=== PATIENT | female | born 1995 | race Caucasian/White ===

== ENCOUNTER 2018-10-31 09:56 | Outpatient (CLI) | payer OTHER ==
[~2018-10-31] VITALS: Ht 160 cm; Wt 61.0 kg
[2018-10-31] MEDS ORDERED: PREN-93 PO (10:08)
[2018-10-31 10:09] VITALS: BP 116/61; PULSE 95; RESP 18; Ht 160 cm; Wt 61.0 kg
--- NOTE | 2018-10-31 12:01 | TRIAGE ---
OB Triage Datetime Report Generated by CPN: 10/31/2018 12:01 Datetime: 10/31/2018 10:07 EGA: 25.6 Datetime: 10/31/2018 10:02 Assessment Type: Triage Maternal Assessment Level of Consciousness: Keenly Alert, Responsive DTR's/Clonus: DTRs 2+; No Clonus Headache: Denies Blurred Vision: No Respiratory Effort: Unlabored; Regular Rhythm; Equal Expansion Breath Sounds, Left: Clear and Equal Breath Sounds, Right: Clear and Equal Nausea/Vomiting: Denies RUQ Epigastric Pain: Denies Lower Extremities Edema: None Degree: None Upper Extremities Edema: None Degree: None Facial Edema: None Fall Risk Assessment History of Falling: (0) No Secondary Diagnosis: (0) No Ambulatory Aid: (0) Bedrest/Nurse Assist IV Therapy: (0) No Gait: (0) Normal/Bedrest/Immobile Mental Status: (0) Oriented to Own Ability Fall Score: 0 Fall Risk Score Definition: No Risk: No action required Datetime: 10/31/2018 10:01 EGA: 25.6 Datetime: 10/31/2018 10:00 Time of Arrival: 10/31/2018 09:44 Arrived By: Ambulatory Arrived From: Home Chief Complaint: PT. HERE C/O DFM AND LOWER ABDOMINAL PRESSURE Movement: Decreased Contractions: Irregular Rupture of Membranes: Denies Vaginal Bleeding: None Vaginal Discharge: Present Recent Sexual Intercouse: Denies Abdominal Trauma: Not Applicable Patient Complaints: Contractions; Cramping; Back Pain Time Provider Notified: 10/31/2018 11:15 Provider Notified: HADADIAN Datetime: 10/31/2018 09:58 Labor Evaluation Monitor Mode: External Heart Rate Monitor Mode: External US
--- NOTE | 2018-10-31 13:27 | PN ---
Triage Information Date/Time Reason for visit: DFM Weeks of Gestation 25 weeks and 6 days /Para -0-0-1 Diabetes: none Hypertention: none Objective Vital Signs Date Temp Pulse Resp B/P (MAP) Pulse Ox O2 O2 Flow FiO2 Time Delivery Rate 10/31/18 98.6 95 18 116/61 Room Air 10:09 (79) Heart Rate: 140's Contractions: None Results/Medications Results 24 hrs Laboratory Tests Test 10/31/18 10:00 Urine Color YELLOW Urine Clarity SLIGHTLY CLOUDY A Urine pH 7.0 Urine Specific [place] 1.013 Urine Ketones NEGATIVE Urine Nitrite NEGATIVE Urine Bilirubin NEGATIVE Urine Urobilinogen NEGATIVE Urine Leukocyte Esterase 1+ H Urine Microscopic RBC 1 Urine Microscopic WBC 4 Urine Squamous Epithelial Cells FEW Urine Bacteria FEW A Urine Hemoglobin NEGATIVE Urine Glucose NEGATIVE Urine Total Protein NEGATIVE Disposition: Discharge Assessment/Plan 23 years old -0-1-0 with single intrauterine at 25 weeks and 6 days complaining of decreased movement and abdominal cramp. She denies nausea, vomiting, shortness of breath, chest pain, headache, visual changes, vaginal bleeding or LOF. -FHR: No sign of metabolic acidosis- Category I -Contractions: None -Ultrasound performed: Normal CHELSI, BPP 8 out of 8, normal cervical length -Symptoms and sign of labor, preeclampsia, kick count discussed with patient, she voiced understanding. All of her questions answered. -Patient was discharged home in stable condition with the appropriate discharge instructions provided. I would like patient to have close follow-up with her primary physician or outpatient clinic in 1-2 days or return to triage for worsening symptoms or any other urgent concerns. REINIER MCDONOUGH Oct 31, 2018 13:27
== END 2018-10-31 12:10 | disposition home or self-care (01) ==
LOC: OBT 09:56 → L-D 09:56 → OBT 12:10
PROVIDERS: ATTEND Obstetrics & Gynecology
DX: O36.8120 Decreased fetal movements, second trimester, not applicable or unspecified (principal); Z3A.25 25 weeks gestation of pregnancy
CPT/HCPCS: 76817; 76818; 81001; Z7500; G0463